=== PATIENT | female | born 1970 | race Caucasian/White ===

== ENCOUNTER 2017-11-29 20:07 | Emergency (ER) | payer OTHER, BC ==
--- NOTE | 2017-11-29 22:44 | ERPHSYRPT ---
- History of Present Illness Time Seen by Provider: 11/29/17 20:45 Source: patient Exam Limitations: no limitations Patient Subjective Stated Complaint: pt states around noon today she was getting into the bed of her truck and stepped up onto the and foot opening and hit the top of her left foot on the metal opening; then this pm at approx 1900 she was unloading a refrigerator back out of the bed of the truck and hit the same foot on the same metal opening; c/o pain and edema to left foot. Triage Nursing Assessment: pt a&o x3; skin p, w, & d; minor edema noted to top of left foot; pain with palpation; pt ambulated to room per self. Physician History: 47 y/o white female presents to ER with left foot pain following an injury twice. pain and bruising present on top of her left foot. can put weight on it but hurts. Method of Injury: twisted (caught on back of truck. twisted it twice) Occurred: just prior to arrival Quality: aching, throbbing Severity of Pain-Max: moderate Severity of Pain-Current: mild Lower Extremities Pain: foot: left Modifying Factors: Improves With: movement (worsens) Associated Symptoms: none Allergies/Adverse Reactions: Penicillins Allergy (Verified 11/29/17 20:50) Home Medications: Azithromycin 250 mg [Zithromax 250 MG] 250 mg PO DAILY 12/18/11 [History] Carvedilol 6.25 mg [Coreg 6.25 MG] 6.25 mg PO BID 12/18/11 [History] Hydrochlorothiazide 25 mg [hydroDIURIL 25 MG] 25 mg PO DAILY 12/18/11 [ History] Ibuprofen [Motrin] 800 mg PO PRN 12/18/11 [History] Promethazine HCl 25 mg [Phenergan 25 mg] 25 mg PO PRN 12/18/11 [History] Hx Tetanus, Diphtheria Vaccination/Date Given: Yes Hx Influenza Vaccination/Date Given: No Hx Pneumococcal Vaccination/Date Given: Yes Immunizations Up to Date: Yes - Review of Systems Constitutional: No Symptoms Eyes: No Symptoms Ears, Nose, & Throat: No Symptoms, No Ear Pain Respiratory: No Symptoms, No Cough, No Dyspnea, No Stridor, No Wheezing Cardiac: No Symptoms, No Chest Pain Abdominal/Gastrointestinal: No Symptoms, No Abdominal Pain, No Nausea, No Vomiting, No Diarrhea Genitourinary Symptoms: No Symptoms, No Dysuria, No Frequency, No Hematuria Musculoskeletal: Fall, Injury (left foot) Neurological: No Symptoms Psychological: No Symptoms Endocrine: No Symptoms Hematologic/Lymphatic: No Symptoms Immunological/Allergic: No Symptoms All Other Systems: Reviewed and Negative - Past Medical History Pertinent Past Medical History: Yes Neurological History: No Pertinent History ENT History: No Pertinent History Cardiac History: Hypertension Respiratory History: No Pertinent History Endocrine Medical History: No Pertinent History Musculoskeletal History: No Pertinent History GI Medical History: No Pertinent History History: No Pertinent History Psycho-Social History: No Pertinent History Female Reproductive Disorders: No Pertinent History - Past Surgical History Past Surgical History: Yes Neuro Surgical History: No Pertinent History Cardiac: No Pertinent History Respiratory: No Pertinent History Gastrointestinal: No Pertinent History Genitourinary: No Pertinent History Musculoskeletal: No Pertinent History Female Surgical History: Section - Social History Smoking Status: Never smoker Exposure to second hand smoke: No Drug Use: none Patient Lives Alone: No - Female History Hx Last Menstrual Period: 10/25/2017 Hx Now: No - Nursing Vital Signs Nursing Vital Signs: Initial Vital Signs Temperature 98.2 F 11/29/17 20:33 Pulse Rate 84 11/29/17 20:33 Respiratory Rate 18 11/29/17 20:33 Blood Pressure 159/89 11/29/17 20:33 O2 Sat by Pulse Oximetry 98 11/29/17 20:33 Pain Scale Pain Intensity 7 - Physical Exam General Appearance: no apparent distress, alert, anxiety Eyes, Ears, Nose, Throat Exam: normal ENT inspection Neck Exam: normal inspection, non-tender, supple, full range of motion Cardiovascular/Respiratory Exam: chest non-tender, no respiratory distress Gastrointestinal/Abdominal Exam: non-tender Back Exam: normal inspection, normal range of motion, No CVA tenderness, No vertebral tenderness Hips Exam: bilateral: non-tender, normal inspection, normal range of motion, no evidence of injury Legs Exam: bilateral leg: non-tender, normal inspection, normal range of motion , no evidence of injury Knees Exam: bilateral knee: non-tender, normal inspection, normal range of motion, no evidence of injury Ankle Exam: bilateral ankle: non-tender, normal inspection, normal range of motion, no evidence of injury Foot Exam: right foot: non-tender, normal inspection, normal range of motion, no evidence of injury, left foot: bone tenderness, ecchymosis, soft tissue tenderness, swelling Neuro/Tendon Exam: normal sensation, normal motor functions, normal tendon functions, responds to pain, no evidence tendon injury Mental Status Exam: alert, oriented x 3, cooperative Skin Exam: normal color, warm, dry SpO2 Interpretation: normal SpO2: 100 Oxygen Delivery: Room Air Ordered Tests: Active Orders 24 hr Category Date Time Status FOOT (MINIMUM 3 VIEWS) Stat Exams 11/29/17 Ordered Lab/Rad Data: i read xray of left foot. one view was suspicious so i had radiologist read film. final reading reported no acute fx or dislocation. bone spurs present - Progress Progress: unchanged Progress Note: 11/29/17 23:01 pt does not want any narcotic or nonnarcotic pain meds at this time. Counseled pt/family regarding: diagnosis, need for follow-up, rad results - Departure Time of Disposition: 23:01 Departure Disposition: Home Clinical Impression: Foot sprain Condition: Stable Critical Care Time: No Referrals: ULISES ANN [Primary Care Provider] - Additional Instructions: ice pack 3 times daily for 2 days. weight bearing as tolerated. use tylenol and ibuprofen for pain. follow up with primary doctor for persistent symptoms
[2017-11-29 23:18] VITALS: BP 117/56; PULSE 78; O2SAT 98
--- NOTE | 2017-11-30 11:16 | XRAY ---
Exam: 3 view left foot series from 11/29/2017. Comparison: None. Indication: 47-year-old female patient with history of trauma, struck foot against refrigerator while attempting to move it, complains of a large "knot" on top of left foot. Findings: AP, oblique, and lateral images of the left foot were obtained. I see no acute fracture or dislocation of the left foot. A mild plantar left calcaneal spur is seen. There is a small, round calcification posterior to the talus which likely represents an os trigonum (accessory bone). Mild focal soft tissue prominence overlies the dorsal distal aspect of the left hindfoot. Correlate clinically. No underlying bony abnormality is seen. I see a small accessory bone adjacent to the tarsal cuboid (os peroneum). The joint spaces appear unremarkable. There is fusion of the DIP joint of the left fifth toe representing a normal variant. The medial sesamoid bone overlying the plantar aspect of the distal left first metatarsal head is bipartite in appearance. Impression: 1. No acute fracture or dislocation of the left foot is seen. 2. Mild focal soft tissue prominence overlies the dorsal aspect of the distal left hindfoot on the lateral radiograph. Correlate clinically regarding the site of the patient's injury. 3. Mild plantar left calcaneal spur.
== END 2017-11-29 23:14 | disposition home or self-care (01) ==
LOC: ED 20:07
DX: S93.602A Unspecified sprain of left foot, initial encounter (principal); W22.09XA Striking against other stationary object, initial encounter; X50.1XXA Overexertion from prolonged static or awkward postures, initial encounter; Z79.899 Other long term (current) drug therapy
CPT/HCPCS: 73630; 99283

== ENCOUNTER 2024-03-20 09:24 | Emergency (ER) | payer BC ==
[2024-03-20 09:42] VITALS: TEMP 96.8; O2SAT 95
[2024-03-20] MEDS ORDERED: Zofran 4 MG/2 ML VIAL ONE (09:50)
[2024-03-20] MEDS ORDERED: PROTONIX 40 MG IV IV ONE (09:51)
[2024-03-20] MEDS ORDERED: Sodium Chloride 0.9% 1000 ML 1,000 ML ONE (09:51)
[2024-03-20] MEDS ORDERED: Lomotil ONE (09:51)
[2024-03-20] MEDS: PROTONIX 40 MG IV IV ONE (09:52)
[2024-03-20] MEDS: Lomotil PO ONE (09:52)
[2024-03-20] MEDS: Sodium Chloride 0.9% 1000 ML 1,000 ML IV STA (09:52)
[2024-03-20] MEDS: Zofran 4 MG/2 ML VIAL IV ONE (09:52)
[2024-03-20 10:00] LABS: Absolute Neutrophil Ct (ANC) 9.94 x10^3/uL (1.56-6.13); BASOPHIL % 0.3 % (0.1-1.2); Basophil (Absolute #) 0.03 x10^3/uL (0.01-0.08); Eosinophil % 0.8 % (0.7-5.8); Eosinophil (Absolute #) 0.09 x10^3/uL (0.04-0.36); Hematocrit 48.1 % (34.1-44.9); IMMATURE GRAN # 0.04 x10^3u/L (0.001-0.031); IMMATURE GRAN % 0.4 % (0.001-0.429); Lymphocyte (Absolute #) 0.76 x10^3/uL (1.18-3.74); Lymphocytes % 6.7 % (19.3-51.7); Mean Cell Volume 89.7 fL (79.4-94.8); Mean Corpuscular Hemoglobin 29.9 pg (25.6-32.2); Mean Corpuscular Hgb Concent. 33.3 g/dL (32.2-35.5); Mean Platelet Volume 10.4 fL (9.4-12.3); Monocytes % 4.4 % (4.7-12.5); Neutrophil % 87.4 % (34.0-71.1); Platelet Count 233 x10^3/uL (182-369); Red Blood Count 5.36 x10^6/uL (3.93-5.22); Red Cell Distribution Width 13.2 % (11.7-14.4); White Blood Count 11.4 x10^3/uL (3.98-10.04)
--- NOTE | 2024-03-20 10:04 | ERPHSYRPT ---
- History of Present Illness Time Seen by Provider: 03/20/24 10:01 Historian: patient Exam Limitations: no limitations Patient Subjective Stated Complaint: Vomiting Triage Nursing Assessment: Patient ambulated back to ED and transferred self to bed. Patient A+O X 3. Patient's skin pink, warm and dry. Patient complains of N/V and diarrhea since 0400. Patient denies pain or discomfort. Abdomen soft round with BS X 4. Physician History: Patient is 54-year-old female with significant past medical history of hypertension started having a nausea vomiting and diarrhea since 4:00 in the morning. She also have a sick contacts at home. She states that all her symptoms started after she ate at [facility]. She denies any headache chest congestion shortness of breath or chest pain. She denies any blood in the stool or urine. Timing/Duration: today Associated Symptoms: diarrhea, nausea, vomiting Previous symptoms: no prior history Allergies/Adverse Reactions: Penicillins Allergy (Verified 03/20/24 09:38) Home Medications: Azithromycin 250 mg [Zithromax 250 MG] 250 mg PO DAILY 12/18/11 [History] Carvedilol [Coreg 6.25 MG] 6.25 mg PO BID 12/18/11 [History] Hydrochlorothiazide 25 mg [hydroDIURIL 25 MG] 25 mg PO DAILY 12/18/11 [History] Ibuprofen [Motrin] 800 mg PO PRN 12/18/11 [History] Promethazine HCl 25 mg [Phenergan 25 mg] 25 mg PO PRN 12/18/11 [History] Hx Tetanus, Diphtheria Vaccination/Date Given: Yes Hx Influenza Vaccination/Date Given: No Hx Pneumococcal Vaccination/Date Given: Yes Immunizations Up to Date: Yes Travel Risk - International Travel Have you traveled outside of the country in past 3 weeks: No - Emerging Infectious Disease Are you exhibiting symptoms associated with any current EIDs: Yes Symptoms: Diarrhea, Vomitting - Review of Systems Constitutional: Fatigue, Malaise, Weakness, No Fever, No Chills Eyes: No Symptoms Ears, Nose, & Throat: No Symptoms Respiratory: No Cough, No Dyspnea Cardiac: No Chest Pain, No Edema, No Syncope Abdominal/Gastrointestinal: Nausea, Vomiting, Diarrhea, No Abdominal Pain Genitourinary Symptoms: No Dysuria Musculoskeletal: No Back Pain, No Neck Pain Skin: No Rash Neurological: No Dizziness, No Focal Weakness, No Sensory Changes Psychological: No Symptoms Endocrine: No Symptoms All Other Systems: Reviewed and Negative - Past Medical History Pertinent Past Medical History: Yes Neurological History: No Pertinent History ENT History: No Pertinent History Cardiac History: Hypertension Respiratory History: No Pertinent History Endocrine Medical History: No Pertinent History Musculoskeletal History: No Pertinent History GI Medical History: No Pertinent History History: No Pertinent History Psycho-Social History: No Pertinent History Female Reproductive Disorders: No Pertinent History - Past Surgical History Past Surgical History: Yes Neuro Surgical History: No Pertinent History Cardiac: No Pertinent History Respiratory: No Pertinent History Gastrointestinal: No Pertinent History Genitourinary: No Pertinent History Musculoskeletal: No Pertinent History Female Surgical History: Section - Female History Hx Last Menstrual Period: complete hysterectomy Hx Now: No - Social History Smoking Status: Never smoker Exposure to second hand smoke: No Drug Use: none Patient Lives Alone: No - Social Determinants of Health Will the patient participate in the screening: Yes Do you worry about a steady place to live?: No Do you have any problems with any of the following?: No known problems In the past 12 months,have you had to go without utilities?: No Transportation Issues: No Has anyone in your support network made you feel unsafe?: No Have you or anyone in your house had to go without enough: No - Nursing Vital Signs Nursing Vital Signs: Initial Vital Signs Temperature 96.8 F 03/20/24 09:38 Pulse Rate 92 H 03/20/24 09:38 Respiratory Rate 20 03/20/24 09:38 Blood Pressure 141/84 03/20/24 09:38 O2 Sat by Pulse Oximetry 95 03/20/24 09:38 Pain Scale Pain Intensity 0 - Physical Exam General Appearance: no apparent distress, alert Eye Exam: PERRL/EOMI, eyes nml inspection Ears, Nose, Throat Exam: normal ENT inspection, pharynx normal, moist mucous membranes Neck Exam: normal inspection, non-tender, supple, full range of motion Respiratory Exam: normal breath sounds, lungs clear, No respiratory distress Cardiovascular Exam: regular rate/rhythm, normal heart sounds Gastrointestinal/Abdomen Exam: soft, No tenderness, No mass Back Exam: normal inspection, normal range of motion, No CVA tenderness, No vertebral tenderness Extremity Exam: normal inspection, normal range of motion, pelvis stable Neurologic Exam: alert, oriented x 3, cooperative, normal mood/affect, nml cerebellar function, sensation nml, No motor deficits Skin Exam: normal color, warm, dry SpO2: 95 - Course Nursing assessment & vital signs reviewed: Yes Ordered Tests: Active Orders 24 hr Category Date Time Status AMYLASE Stat Lab 03/20/24 09:55 Completed CBC W DIFF Stat Lab 03/20/24 09:55 Completed CMP Stat Lab 03/20/24 09:55 Completed LIPASE Stat Lab 03/20/24 09:55 Completed Medication Summary Generic Name Dose Route Start Last Admin Trade Name Freq PRN Reason Stop Dose Admin Clindamycin Phosphate 300 mg in 50 mls @ 100 mls/hr 03/20/24 10:50 03/20/24 10:59 Clindamycin Phosphate Ivpb IV 03/20/24 11:19 100 mls/hr STAT STA 100 mls/hr Administration Discontinued Medications Generic Name Dose Route Start Last Admin Trade Name Freq PRN Reason Stop Dose Admin Diphenoxylate HCl/Atropine 1 tablet 03/20/24 09:38 03/20/24 09:52 Diphenoxylate Hcl/Atropine 1 Tablet PO 03/20/24 09:39 1 tablet STAT ONE Administration Diphenoxylate HCl/Atropine Confirm 03/20/24 09:51 Diphenoxylate Hcl/Atropine 1 Tablet Administered 03/20/24 09:52 Dose 1 tablet .ROUTE .STK-MED ONE Sodium Chloride 1,000 mls @ 999 mls/hr 03/20/24 09:38 03/20/24 10:55 Sodium Chloride 0.9% 1000 Ml IV 03/20/24 10:38 Infused .Q1H1M STA Infusion Sodium Chloride Confirm 03/20/24 09:51 Sodium Chloride 0.9% 1000 Ml Administered 03/20/24 09:52 Dose 1,000 mls @ ud .ROUTE .STK-MED ONE Clindamycin Phosphate Confirm 03/20/24 10:58 Clindamycin Phosphate Ivpb Administered 03/20/24 10:59 Dose 300 mg in 50 mls @ ud IV .STK-MED ONE Ondansetron HCl 4 mg 03/20/24 09:43 03/20/24 09:52 Ondansetron Hcl 4 Mg/2 Ml Vial IV 03/20/24 09:44 4 mg STAT ONE Administration Ondansetron HCl Confirm 03/20/24 09:50 Ondansetron Hcl 4 Mg/2 Ml Vial Administered 03/20/24 09:51 Dose 4 mg .ROUTE .STK-MED ONE Pantoprazole Sodium 40 mg 03/20/24 09:43 03/20/24 09:52 Pantoprazole 40 Mg Vial IV 03/20/24 09:44 40 mg STAT ONE Administration Pantoprazole Sodium Confirm 03/20/24 09:51 Pantoprazole 40 Mg Vial Administered 03/20/24 09:52 Dose 40 mg IV .STK-MED ONE Lab/Rad Data: Laboratory Result Diagrams 03/20/24 09:55 03/20/24 09:55 Laboratory Results 03/20/24 03/20/24 Range/Units 09:55 09:55 WBC 11.4 H (3.98-10.04) x10^3/uL RBC 5.36 H (3.93-5.22) x10^6/uL Hgb 16.0 H (11.2-15.7) g/dL Hct 48.1 H (34.1-44.9) % MCV 89.7 (79.4-94.8) fL MCH 29.9 (25.6-32.2) pg MCHC 33.3 (32.2-35.5) g/dL RDW 13.2 (11.7-14.4) % Plt Count 233 (182-369) x10^3/uL MPV 10.4 (9.4-12.3) fL Gran % 87.4 H (34.0-71.1) % Immature Gran % (Auto) 0.4 (0.001-0.429) % Nucleat RBC Rel Count 0.0 (0.00-0.2) % Eos # (Auto) 0.09 (0.04-0.36) x10^3/uL Immature Gran # (Auto) 0.04 H (0.001-0.031) x10^3u/L Absolute Lymphs (auto) 0.76 L (1.18-3.74) x10^3/uL Absolute Monos (auto) 0.50 (0.24-0.86) x10^3/uL Absolute Nucleated RBC 0.00 (0.00-0.012) x10^3u/L Lymphocytes % 6.7 L (19.3-51.7) % Monocytes % 4.4 L (4.7-12.5) % Eosinophils % 0.8 (0.7-5.8) % Basophils % 0.3 (0.1-1.2) % Absolute Granulocytes 9.94 H (1.56-6.13) x10^3/uL Basophils # 0.03 (0.01-0.08) x10^3/uL Sodium 140 (135-145) mmol/L Potassium 3.8 (3.5-5.1) mmol/L Chloride 107 (98-107) mmol/L Carbon Dioxide 23 (22-30) mmol/L Anion Gap 13.3 (5-15) MEQ/L BUN 12 (7-17) mg/dL Creatinine 0.78 (0.52-1.04) mg/dL Estimated GFR 91.3 ML/MIN Glucose 111 H (74-106) mg/dL Calcium 9.8 (8.4-10.2) mg/dL Total Bilirubin 1.00 (0.2-1.3) mg/dL AST 30 (14-36) U/L ALT 19 (0-35) U/L Alkaline Phosphatase 87 (38-126) U/L Serum Total Protein 8.5 H (6.3-8.2) g/dL Albumin 4.4 (3.5-5.0) g/dL Amylase 111 H (30-110) U/L Lipase 582 H (23-300) U/L - Progress Progress: improved Counseled pt/family regarding: lab results, diagnosis, need for follow-up Medical Desision Making - Independent Historian Additional History obtained from: Family - Risk of complications Low Risk: Low risk of morbidity from additional dx testing or treatment - Departure Departure Disposition: Home Clinical Impression: Gastroenteritis and colitis, toxic Condition: Stable Critical Care Time: No Referrals: ULISES ANN [NON-STAFF PHY W/O PRIVILEGES] - Follow Up with PCP/3 days Instructions: Viral gastroenteritis in adults, Food poisoning Additional Instructions: Discharge/Care Plan CRYSTAL HOFFMANN was seen on 03/20/24 in the Emergency Room. The patient was counseled regarding Diagnosis,Lab results, Imaging studies, need for follow up and when to return to the Emergency Room. Prescriptions given: Discharge Note I have spoken with the patient and/or caregivers. I have explained the patient's condition, diagnosis and treatment plan based on the information available to me at this time. I have answered the patient's and/or caregiver's questions and addressed any concerns. The patient and/or caregivers have as good understanding of the patient's diagnosis, condition and treatment plan as can be expected at this point. The vital signs have been stable. The patient's condition is stable and appropriate for discharge from the emergency department. The patient will pursue further outpatient evaluation with the primary care physician or other designated or consulting physician as outlined in the discharge instructions. The patient and/or caregivers are agreeable to this plan of care and follow-up instructions have been explained in detail. The patient and/or caregivers have received these instruction. The patient/and or caregivers are aware that any significant change in condition or worsening of symptoms should prompt an immediate return to this or the closest emergency department or call 911. CRYSTAL HOFFMANN was seen on 03/20/24 n the Emergency Room. At that time you were treated for an emergent condition, during your visit Laboratory, Radiology and/or other procedures may have been ordered. It is very important that you follow-up with your Primary Care Physician ALEJANDRO ARNDT within the next 24-48 hours to review your Emergency Room visit and the final results of t esting that was ordered. Some test results such as Urine Cultures, Blood Cultures, and other cultures if ordered will not be finalized for 24-48 hours. If you do not have a Primary Care Provider please call the medical records department at [phone] to obtain a copy of your results or you may sign into our patient portal to obtain these results by visiting us @ [email or web address] and completing the following steps: 1. Click on the Patient Portal link 2. Click the Patient Self Enrollment Link to complete the enrollment form and entering your 3. Once the enrollment form is completed you will receive an email with a temporary ID and password at the email address you provided. 4. Next choose a user name and password. Your user name must be at least 4 characters long and your password must be at least 4 characters long. 5. Choose a security question from the list and provide your answer to the question. If you already have signed into the Health Portal you may access your Health Care Information 03/11 by the following steps: 1. Login to our website @ [email or web address] 2. Enter your original user name and password. FAQS The [facility] Health Portal is an online tool that contains your Lab Results, Radiology Reports, Visit History, Discharge Instructions and Health Summary Lab and Radiology Results will not be available for 72 hours on the portal. The Portal is a secure site, passwords are encryted and URLs are re-written so they cannot be copied and pasted. You and authorized family members are the only ones who can access your Portal. Also there is a timeout feature that protects your information if you leave the Portal page open. If you have technical difficulty please use the Contact Us link on the page this will allow you to submit any questions you have regarding the Portal or you may contact the Medical Record Department at [phone]. Prescriptions: Ciprofloxacin [Cipro 500 MG] 500 mg PO BIDAC #14 tablet Ondansetron ODT 4 MG [Zofran Odt 4 mg] 4 mg PO Q6H PRN PRN #20 tablet PRN Reason: Nausea/Vomiting
[2024-03-20 10:15] LABS: ALBUMIN 4.4 g/dL (3.5-5.0); ANION GAP 13.3 MEQ/L (5-15); Calcium 9.8 mg/dL (8.4-10.2); Creatinine 1 0.78 mg/dL (0.52-1.04); EST GLOMERULAR FILTRATION RATE 91.3 ML/MIN; Potassium 3.8 mmol/L (3.5-5.1); Total Protein 8.5 g/dL (6.3-8.2)
[2024-03-20 10:21] VITALS: RESP 18
[2024-03-20] MEDS ORDERED: ClINDAMYCIN Phosphate IVPB 300 MG/50 ML IVPB IV ONE (10:58)
[2024-03-20] MEDS: ClINDAMYCIN Phosphate IVPB 300 MG/50 ML IVPB IV STA (10:59)
[2024-03-20 11:33] VITALS: BP 127/72; PULSE 68
== END 2024-03-20 11:40 | disposition home or self-care (01) ==
LOC: ED 09:24
DX: K52.9 Noninfective gastroenteritis and colitis, unspecified (principal); R11.2 Nausea with vomiting, unspecified; R19.7 Diarrhea, unspecified
CPT/HCPCS: 36415; 80053; 82150; 83690; 85025; 96360; 96365; 96374; 96375; 99284; J2405; A9270-GY